=== PATIENT | male | born 1990 ===

== ENCOUNTER 2016-11-28 09:52 | Emergency (ER) | payer OTHER ==
[2016-11-28 10:11] VITALS: BP 108/56; PULSE 54; RESP 16; TEMP 97; O2SAT 99
[2016-11-28] MEDS ORDERED: Sodium Chloride 0.9% 1,000 ML IV STA (10:24)
[2016-11-28 11:06] LABS: BASO % 0.7 % (0.0-2.0); EOS # 0.1 K/uL (0.0-0.7); EOS % 1.4 % (0.0-4.0); HEMOGLOBIN 14.1 g/dL (12.0-18.0); LYMPH # 1.4 K/uL (1.0-4.3); LYMPH % 21.1 % (20.0-40.0); MEAN CELL VOLUME 82.7 fl (80.0-94.0); MEAN CORPUSCULAR HEMOGLOBIN 28.3 pg (27.0-31.0); MEAN CORPUSCULAR HGB CONC 34.3 g/dL (33.0-37.0); MEAN PLATELET VOLUME 8.1 fl (7.2-11.7); MONO # 0.6 K/uL (0.0-0.8); MONO % 8.5 % (0.0-10.0); NEUT # 4.4 K/uL (1.8-7.0); NEUT % 68.3 % (50.0-75.0); NRBC % 0.1 % (0.0-0.0); RED CELL DISTRIBUTION WIDTH 13.3 % (11.5-14.5); WHITE BLOOD COUNT 6.5 K/uL (4.8-10.8)
[2016-11-28 11:19] LABS: ALB/GLOB RATIO 1.4 (1.0-2.1); ALBUMIN 4.1 g/dL (3.5-5.0); ALT/SGPT 38 U/L (21-72); AST/SGOT 29 U/L (17-59); BLOOD UREA NITROGEN 13 mg/dl (9-20); CALCIUM 9.2 mg/dL (8.4-10.2); GFR AFRICAN-AMERICAN > 60; GFR NON-AFRICAN AMERICAN > 60; LIPASE 58 U/L (23-300)
--- NOTE | 2016-11-28 13:44 | ED PDOC ---
HPI: Abdomen Time Seen by Provider: 11/28/16 10:24 Chief Complaint (Nursing): GI Problem Chief Complaint (Provider): my gastritis is back History Per: Patient, Family History/Exam Limitations: no limitations Current Symptoms Are (Timing): Intermittent Episodes Context: Food Severity: Mild Location Of Pain/Discomfort: Epigastric Quality Of Discomfort: Cramping, Burning Associated Symptoms: Nausea, Vomiting, Loss Of Appetite. denies: Diarrhea Exacerbating Factors: None Alleviating Factors: None Last Bowel Movement: Today Additional Complaint(s): 26yo male states was told several years ago he has gastritis, now symptoms have returned with epigastric burning, nausea and loss appetite. Denies NSAID use, alcohol abuse or dark stools, melena or fever. Has had several episodes nonbloody vomiting over last 2 weeks. Past Medical History Reviewed: Historical Data, Nursing Documentation, Vital Signs Vital Signs: Last Vital Signs Temp 97.0 F L 11/28/16 10:08 Pulse 54 L 11/28/16 10:08 Resp 16 11/28/16 10:08 BP 108/56 L 11/28/16 10:08 Pulse Ox 99 11/28/16 13:44 - Medical History PMH: Gastritis - Surgical History Surgical History: No Surg Hx - Family History Family History: States: Unknown Family Hx - Living Arrangements Living Arrangements: With Family - Social History Current smoker - smoking cessation education provided: Yes Alcohol: None Drugs: Denies - Home Medications Home Medications: Ambulatory Orders Medication Instructions Recorded Doxycycline Monohydrate 100 mg PO BID #14 tablet 05/24/16 Ranitidine HCl [Zantac] 150 mg PO BID #20 tablet 11/28/16 - Allergies Allergies/Adverse Reactions: Allergies Allergy/AdvReac Type Severity Reaction Status Date / Time No Known Allergies Allergy Verified 11/28/16 10:07 Review of Systems ROS Statement: Except As Marked, All Systems Reviewed And Found Negative Constitutional: Negative for: Fever, Chills, Weakness, Malaise ENT: Negative for: Ear Pain, Throat Pain Cardiovascular: Negative for: Chest Pain, Palpitations Respiratory: Negative for: Cough, Shortness of Breath Gastrointestinal: Positive for: Nausea, Vomiting. Negative for: Constipation, Rectal Pain Genitourinary Male: Negative for: Dysuria, Frequency Musculoskeletal: Negative for: Neck Pain, Back Pain, Hand Pain Skin: Negative for: Rash, Lesions, Jaundice, Bruising Neurological: Negative for: Weakness, Numbness, Confusion, Dizziness Psych: Negative for: Anxiety Physical Exam - Reviewed Nursing Documentation Reviewed: Yes Vital Signs Reviewed: Yes - Physical Exam Appears: Positive for: Well, Non-toxic, No Acute Distress Head Exam: Positive for: ATRAUMATIC, NORMAL INSPECTION, NORMOCEPHALIC Skin: Positive for: Normal Color, Warm, DRY Eye Exam: Positive for: EOMI, Normal appearance, PERRL ENT: Positive for: Normal ENT Inspection Neck: Positive for: Normal, Painless ROM Cardiovascular/Chest: Positive for: Regular Rate, Rhythm Respiratory: Positive for: CNT, Normal Breath Sounds Gastrointestinal/Abdominal: Positive for: Normal Exam, Bowel Sounds, Soft. Negative for: Tenderness, Guarding Back: Positive for: Normal Inspection Extremity: Positive for: Normal ROM Neurologic/Psych: Positive for: Alert, Oriented - Laboratory Results Result Diagrams: 11/28/16 11:01 11/28/16 11:01 - ECG O2 Sat by Pulse Oximetry: 99 Medical Decision Making Medical Decision Making: checked basic labs, initiated pepcid and zofran w resolution of symptoms Referred GI, Rx trial zantac 150mg BID. Diet modification. Smoking cessation recommended. Disposition - Clinical Impression Clinical Impression: Gastritis - Patient ED Disposition Is Patient to be Admitted: No Counseled Patient/Family Regarding: Studies Performed, Diagnosis, Need For Followup - Disposition Disposition Time: 13:25 Condition: STABLE Additional Instructions: Return to ER for any worse or new symptoms. Prescriptions: Ranitidine HCl [Zantac] 150 mg PO BID #20 tablet Instructions: Gastritis (ED), Acute Nausea and Vomiting (ED) Forms: [employer] (Stateless) Print Language: KYRGYZ
== END 2016-11-28 14:08 | disposition home or self-care (01) ==
LOC: H.ER 09:52
DX: K29.70 Gastritis, unspecified, without bleeding (principal)

== ENCOUNTER 2017-10-15 15:58 | Emergency (ER) | payer OTHER ==
[2017-10-15 16:05] VITALS: O2SAT 97
--- NOTE | 2017-10-15 16:34 | ED PDOC ---
HPI: General Adult Time Seen by Provider: 10/15/17 16:04 Chief Complaint (Nursing): ENT Problem Chief Complaint (Provider): Sore Throat, Fever History Per: Patient, Family () History/Exam Limitations: no limitations Onset/Duration Of Symptoms: Days (x5, x2) Current Symptoms Are (Timing): Still Present Additional Complaint(s): 27 year old male presents to the ED complaining of a sore throat for five days and a fever for two days. Patient denies having a cough. He states he took Motrin this morning with little relief. PMD: none provided Past Medical History Reviewed: Historical Data, Nursing Documentation, Vital Signs Vital Signs: Last Vital Signs Temp 103.2 F H 10/15/17 16:12 Pulse 110 H 10/15/17 16:01 Resp 16 10/15/17 16:01 BP 106/68 10/15/17 16:01 Pulse Ox 97 10/15/17 16:37 - Medical History PMH: Gastritis - Surgical History Surgical History: No Surg Hx - Family History Family History: States: Unknown Family Hx - Social History Current smoker - smoking cessation education provided: Yes (light) Alcohol: Social Drugs: Denies - Home Medications Home Medications: Ambulatory Orders Medication Instructions Recorded Doxycycline Monohydrate 100 mg PO BID #14 tablet 05/24/16 Ranitidine HCl [Zantac] 150 mg PO BID #20 tablet 11/28/16 Amoxicillin 875 mg PO BID #20 tab 10/15/17 - Allergies Allergies/Adverse Reactions: Allergies Allergy/AdvReac Type Severity Reaction Status Date / Time No Known Allergies Allergy Verified 10/15/17 16:00 Review of Systems ROS Statement: Except As Marked, All Systems Reviewed And Found Negative Constitutional: Positive for: Fever ENT: Positive for: Throat Pain Respiratory: Negative for: Cough Physical Exam - Reviewed Nursing Documentation Reviewed: Yes Vital Signs Reviewed: Yes - Physical Exam Appears: Positive for: No Acute Distress Head Exam: Positive for: ATRAUMATIC, NORMOCEPHALIC Skin: Positive for: Normal Color, Warm, Dry ENT: Positive for: Tonsillar Exudate, Other (uvula midline) Cardiovascular/Chest: Positive for: Tachycardia. Negative for: Murmur Respiratory: Positive for: Normal Breath Sounds. Negative for: Accessory Muscle Use, Respiratory Distress Neurologic/Psych: Positive for: Alert, Oriented (x3). Negative for: Motor/ Sensory Deficits - ECG O2 Sat by Pulse Oximetry: 97 (RA) Pulse Ox Interpretation: Normal Medical Decision Making Medical Decision Making: Initial Impression: strep throat Time: 16:09 Initial Plan: --Tylenol 975 mg PO Scribe Attestation Documented by Tabitha Mir acting as a scribe for Salina Veloz PA-C. Provider Attestation All medical record entries made by the Scribe were at my direction and personally dictated by me. I have reviewed the chart and agree that the record accurately reflects my personal performance of the history, physical exam, medical decision making, and the department course for this patient. I have also personally directed, reviewed, and agree with the discharge instructions and disposition. Disposition - Clinical Impression Clinical Impression: Strep pharyngitis - Patient ED Disposition Is Patient to be Admitted: No - Disposition Disposition Time: 16:37 Condition: STABLE Prescriptions: Amoxicillin 875 mg PO BID #20 tab Instructions: Sore Throat, Adult (DC) Forms: [employer] (Amharic)
[2017-10-15 17:16] VITALS: BP 115/50; PULSE 88; RESP 18
[2017-10-15 17:44] VITALS: TEMP 102.7
== END 2017-10-15 17:48 | disposition home or self-care (01) ==
LOC: H.ER 15:58
DX: J02.0 Streptococcal pharyngitis (principal)